=== PATIENT | female | born 1945 | race Caucasian/White ===

== ENCOUNTER 2020-09-22 17:44 | Emergency (ER) | payer OTHER ==
[~2020-09-22] VITALS: Ht 177.8 cm; Wt 72.6 kg
[2020-09-22 18:27] LABS: BASOPHILS ABSOLUTE AUTO 0.08 K/mm3 (0.00-0.23); BASOPHILS PERCENT AUTO 0 % (0-2); EOSINOPHILS ABSOLUTE AUTO 0.08 K/mm3 (0.00-0.68); EOSINOPHILS PERCENT AUTO 0 % (0-6); Hemoglobin 15.9 g/dL (11.5-16.0); IMMATURE GRAN ABSOLUTE AUTO 0.07 K/mm3 (0.00-0.10); IMMATURE GRAN PERCENT AUTO 0 % (0-1); LYMPHOCYTES ABSOLUTE AUTO 1.73 K/mm3 (0.84-5.20); LYMPHOCYTES PERCENT AUTO 9 % (21-46); MONOCYTES ABSOLUTE AUTO 0.85 K/mm3 (0.16-1.47); MONOCYTES PERCENT AUTO 4 % (4-13); Mean Corpuscular HGB 30.2 pg (26.0-34.0); Mean Corpuscular HGB Conc 33.1 g/dL (31.5-36.5); Mean Corpuscular Volume 91 fL (80-100); Mean Platelet Volume 10.9 fL (9.1-12.4); NEUTROPHILS ABSOLUTE AUTO 16.52 K/mm3 (1.96-9.15); NEUTROPHILS PERCENT AUTO 86 % (41-73); Platelet Count 372 K/mm3 (150-400); RDW Coefficient Variation 13.3 % (11.7-14.2); RDW Standard Deviation 44.8 fL (35.1-46.3); Red Blood Cell Count 5.27 M/mm3 (3.80-5.20); White Blood Cell Count 19.33 K/mm3 (4.00-11.30)
[2020-09-22 18:58] LABS: Albumin/Globulin Ratio 1.1 (0.8-1.8); Bilirubin, Total 0.8 mg/dL (0.1-1.0); Bun/Creatinine Ratio 13.4 (12.0-20.0); Calcium, Blood 9.2 mg/dL (8.5-10.1); Creatinine, Blood 1.19 mg/dL (0.40-1.00); Globulin, Blood 3.8 g/dL (2.2-4.0); Potassium, Blood 3.4 mmol/L (3.5-5.5); Total Protein, Blood 7.8 g/dL (6.4-8.2)
[2020-09-22 19:35] LABS: Source, Urine Clean Catch
[2020-09-22 19:43] LABS: Appearance, Urine Hazy (Clear); Bilirubin, Urine Neg (Neg); Blood, Urine 5+ (Neg); Color, Urine Yellow (P-Yellow); Glucose Qualitative, Urine Neg (Neg); Ketones, Urine 4+ (Neg); Leukocyte Esterase, Urine 1+ (Neg); Nitrite, Urine Neg (Neg); Protein, Urine 2+ (Neg); Specific Gravity, Urine 1.015 (1.003-1.022); Urobilinogen, Urine 1+ (Normal)
[2020-09-22 19:53] LABS: Red Blood Cells, Urine 50-100 /hpf (0-2)
[2020-09-22 19:54] LABS: Bacteria Many /hpf; Mucus Light (0-Heavy); Squamous Epithelial Cells Few /hpf (Few)
[2020-09-22] MEDS ORDERED: CEFP200 PO (21:19)
== END 2020-09-22 21:27 | disposition home or self-care (01) ==
LOC: ER 17:44
PROVIDERS: Physician Assistant
DX: N39.0 Urinary tract infection, site not specified (principal); Z87.442 Personal history of urinary calculi
CPT/HCPCS: 74176; 76770; 80053; 81001; 83690; 85025; 87086; 96365; 96375; 99284-25; J0696; J1170; J2405

== ENCOUNTER 2021-07-18 08:33 | Inpatient (IN) | payer OTHER ==
[~2021-07-18] VITALS: Ht 177.8 cm; Wt 68.0 kg
[~2021-07-18 08:33] MED LIST: CEFP200 PO
--- NOTE | 2021-07-18 12:57 | NUR ---
THE PATIENT WAS BROUGHT TO [facility] FOR HER PROCEDURE. Surgical site prepped with 2% Chlorhexidine cloth wipe. History, Chart, Medications and Allergies reviewed before start of procedure.Lungs clear T/O to Auscultation. Patient confirms NPO status and agrees with scheduled surgery. Pre-Op teaching done. Pt verbalizes understanding.
[2021-07-18 13:38] LABS: BASOPHILS ABSOLUTE AUTO 0.05 K/mm3 (0.00-0.23); BASOPHILS PERCENT AUTO 0 % (0-2); EOSINOPHILS ABSOLUTE AUTO 0.02 K/mm3 (0.00-0.68); EOSINOPHILS PERCENT AUTO 0 % (0-6); Hematocrit 46.1 % (33.0-51.0); Hemoglobin 15.2 g/dL (11.5-16.0); IMMATURE GRAN ABSOLUTE AUTO 0.09 K/mm3 (0.00-0.10); IMMATURE GRAN PERCENT AUTO 1 % (0-1); LYMPHOCYTES ABSOLUTE AUTO 0.95 K/mm3 (0.84-5.20); LYMPHOCYTES PERCENT AUTO 6 % (21-46); MONOCYTES ABSOLUTE AUTO 0.74 K/mm3 (0.16-1.47); MONOCYTES PERCENT AUTO 4 % (4-13); Mean Corpuscular HGB 30.1 pg (26.0-34.0); Mean Corpuscular Volume 91 fL (80-100); Mean Platelet Volume 10.8 fL (9.1-12.4); NEUTROPHILS ABSOLUTE AUTO 14.88 K/mm3 (1.96-9.15); NEUTROPHILS PERCENT AUTO 89 % (41-73); Platelet Count 328 K/mm3 (150-400); RDW Coefficient Variation 13.5 % (11.7-14.2); Red Blood Cell Count 5.05 M/mm3 (3.80-5.20); White Blood Cell Count 16.73 K/mm3 (4.00-11.30)
[2021-07-18 13:43] LABS: Alanine Aminotransfer (ALT/SGP 80 U/L (12-78); Albumin, Blood 3.5 g/dL (3.4-5.0); Alk Phos 111 U/L (50-136); Anion Gap 7 mmol/L (6-16); Aspartate Aminotrans (AST/SGOT 48 U/L (12-37); Bilirubin, Total 0.8 mg/dL (0.1-1.0); Blood Urea Nitrogen 15 mg/dL (8-24); Bun/Creatinine Ratio 19.6 (12.0-20.0); CO2, Blood 28 mmol/L (21-32); Calcium, Blood 9.2 mg/dL (8.5-10.1); Chloride, Blood 107 mmol/L (98-108); Creatinine, Blood 0.77 mg/dL (0.40-1.00); Globulin, Blood 3.6 g/dL (2.2-4.0); Glomerular Filtration Rate >60 (60-); Glucose, Blood 137 mg/dL (70-99); Potassium, Blood 3.9 mmol/L (3.5-5.5); Sodium, Blood 142 mmol/L (136-145); Total Protein, Blood 7.1 g/dL (6.4-8.2)
--- NOTE | 2021-07-18 18:22 | NUR ---
PT TO FLOOR FROM OR ABOUT 1700. VSS, SATS>92% RA. PT HAS IMMOBILIZER ON R LED, X1 PRESSURE DRSG VISIBLE, C/D/I. PT DENIES N/V & PAIN AT THIS TIME. TOLERATING PO LIQUIDS AT THIS TIME. ROBERTS IN PLACE, STAT LOCK & OFF FLOOR, DRNG CLEAR YELLOW URINE. WILL REPORT TO ONCOMING RN.
[2021-07-18 18:38] LABS: International Normalized Ratio 0.95
[2021-07-19 04:22] LABS: BASOPHILS ABSOLUTE AUTO 0.02 K/mm3 (0.00-0.23); BASOPHILS PERCENT AUTO 0 % (0-2); EOSINOPHILS PERCENT AUTO 0 % (0-6); Hematocrit 39.5 % (33.0-51.0); Hemoglobin 13.1 g/dL (11.5-16.0); IMMATURE GRAN ABSOLUTE AUTO 0.07 K/mm3 (0.00-0.10); IMMATURE GRAN PERCENT AUTO 0 % (0-1); LYMPHOCYTES ABSOLUTE AUTO 0.91 K/mm3 (0.84-5.20); LYMPHOCYTES PERCENT AUTO 6 % (21-46); MONOCYTES ABSOLUTE AUTO 0.67 K/mm3 (0.16-1.47); MONOCYTES PERCENT AUTO 4 % (4-13); Mean Corpuscular HGB 30.1 pg (26.0-34.0); Mean Corpuscular HGB Conc 33.2 g/dL (31.5-36.5); Mean Corpuscular Volume 91 fL (80-100); Mean Platelet Volume 10.9 fL (9.1-12.4); NEUTROPHILS PERCENT AUTO 90 % (41-73); Platelet Count 351 K/mm3 (150-400); RDW Coefficient Variation 13.4 % (11.7-14.2); RDW Standard Deviation 45.2 fL (35.1-46.3); Red Blood Cell Count 4.35 M/mm3 (3.80-5.20); White Blood Cell Count 16.47 K/mm3 (4.00-11.30)
[2021-07-19 04:38] LABS: Anion Gap 6 mmol/L (6-16); Blood Urea Nitrogen 10 mg/dL (8-24); Bun/Creatinine Ratio 13.3 (12.0-20.0); CO2, Blood 25 mmol/L (21-32); Calcium, Blood 8.5 mg/dL (8.5-10.1); Chloride, Blood 107 mmol/L (98-108); Creatinine, Blood 0.75 mg/dL (0.40-1.00); Glomerular Filtration Rate >60 (60-); Glucose, Blood 194 mg/dL (70-99); Magnesium, Blood 1.8 mg/dL (1.6-2.4); Sodium, Blood 138 mmol/L (136-145)
--- NOTE | 2021-07-19 06:18 | NUR ---
SUMMARY PT HAD SOME NAUSEA AT BEGINNING OF SHIFT. PT TX PER EMAR WITH RELIEF. PT LEG HAS REMAINED IN IMMOBILIZER AND DRESSING C/D/I. PT ROBERTS DRAINING TO GRAVITY. PT HAS BEEN ABLE TO SLEEP DURING SHIFT. PT HAS GOOD PEDAL PULSES, MOTION AND SENSATION. PT CURRENTLY SLEEPING IN NO DISTRESS, CALL LIGHT IN REACH.
[2021-07-19 08:50] LABS: Influenza A, PCR NEGATIVE (NEGATIVE); Influenza B, PCR NEGATIVE (NEGATIVE); Resp Syncytial Virus, PCR NEGATIVE (NEGATIVE); SARS-Cov-2 (COVID-19) PCR, MMC NEGATIVE (NEGATIVE)
[2021-07-19] MEDS ORDERED: TRAM50 PO (09:48)
[2021-07-19] MEDS ORDERED: Aspir 8181 MG PO (09:48)
--- NOTE | 2021-07-19 13:59 | NUR ---
07/19/21 1359 Phyllis Fofana VERIFICATIONS: EDIT CHART.
--- NOTE | 2021-07-19 16:35 | NUR ---
SHIFT SUMMARY: POD 1 RIGHT FEMUR FX PATIENT IS ALERT AND ORIENTED X4. VS ARE WNL AND IS ON RA. PATIENT HAS DENIED PAIN THROUGHOUT SHIFT. HER RIGHT LEG IS IN AN IMMOBILIZER AND DRESSINGS WERE CHANGED BY DR. ROMERO EARLIER AND ARE C/D/I. SHE IS ABLE TO WIGGLE FINGERS AND TOES. DENIES NUMBNESS OR TINGLING. SHE IS TO BE NON WT BEARING ON RIGHT LEG. SHE IS A SBA WITH FWW AND GAIT BELT. HARD PERSCRIPTIONS WERE GIVEN TO FAMILY EARLIER TODAY TO BE FILLED OUT. PATIENT IS CURRENTLY SITTING UP IN BED. SHE IS TOLERATING PO INTAKE AND IS VOIDING/HAVING BMS. CALL LIGHT WITHIN REACH. THE PLAN IS TO BE D/C'D TOMORROW [facility] IS SET UP.
--- NOTE | 2021-07-20 06:36 | NUR ---
DENIED PAIN THROUGH NIGHT. NO ACUTE DISTRESS NOTED. DRESSING C/D/I TO RLE, IMMOBILIZER IN PLACE. 1 ASSIST FOR TRANSFERS WITH GAIT BELT AND WALKER. SAFETY MAINTAINED, CALL ARVIZU IN REACH.
[2021-07-20] MEDS ORDERED: XARELTO10 M1 PO (09:39)
[2021-07-20] MEDS ORDERED: Acetaminophen650 M1 PO (09:40)
--- NOTE | 2021-07-20 10:05 | NUR ---
DISCHARGE INSTUCTIONS GIVEN TO PATIENT. PATIENT VERBALIZED UNDERSTANDNG. DR ROMERO CHANGED PATIENT DRESSING TO RIGHT KNEE. DRESSING TO RIGHT THIGH IS CDI. CALL PRESCRITION INTO [facility]. NO SIGNS OR SYMPTOMS ACUTE DISTRESS NOTED. PATIENT HAS WHEELCHAIR, WALKER AND BSC ALREADY DELIVERED. AWAITING ARRIVAL OF HER SON TO PICK HER UP. IVS REMOVED, TOLERATED WELL.
== END 2021-07-20 11:20 | disposition home or self-care (01) | DRG 482 ==
LOC: ER 08:33 → SURS 12:28
PROVIDERS: Nurse Practitioner Acute Care; Orthopaedic Surgery; ADMIT Internal Medicine
PROC: 0QSB06Z Reposition Right Lower Femur with Intramedullary Internal Fixation Device, Open Approach (ICD-10-PCS; principal; 2021-07-18 12:15)
DX: S72.451A Displaced supracondylar fracture without intracondylar extension of lower end of right femur, initial encounter for closed fracture (principal); Z20.822 Contact with and (suspected) exposure to COVID-19; W10.9XXA Fall (on) (from) unspecified stairs and steps, initial encounter; Y92.009 Unspecified place in unspecified non-institutional (private) residence as the place of occurrence of the external cause
CPT/HCPCS: 0241U; 36415; 73552; 80048; 80053; 83735; 85025; 85610; 96374; 96375; 97110; 97161; 97530; 99285-25; A9270; C1713; C1769; J0690; J1100; J1170; J1650; J2250; J2370; J2405; J2704; J2765; J3010; J7120